=== PATIENT | female | born 1945 | race Asian ===

== ENCOUNTER → 2017-03-04 | Day surgery (SDC) | payer MEDICARE, BC ==
[~2017-03-04] VITALS: Ht 152.4 cm; Wt 67.6 kg
[2017-03-04] VITALS (9 sets, daily range): BP systolic 157–176; BP diastolic 60–90
[~2017-03-04] MED LIST: ATORVASTATIN CA20 MG ORAL; Akten 3.5% 1ml Btl ONE; BSS 15ml BTL ONE; BSS 500ml btl ONE; Dexamethasone 4mg/ml vial ONE; EPINEPHrine 1mg/1ml Amp ONE; FOSAMAX70 MG ORAL; Gatifloxacin Opth Solution 0.5% ONE; HUMALOG 75/255 UNIT1 SUBQ; HUMALOG100 UNIT/1 SUBQ; HUMULIN N100 UNIT/1 SUBQ; LOSARTAN POTASS50 MG ORAL; LR 1000ml ONE; Lidocaine 1% MPF 10mg/ml 5ml ONE; Midazolam 2mg/2ml Inj ONE; NS Irrig 1000ml ONE; Phenylephrine 2.5% Op Soln ONE; Povidone-Iodine 5% opth solution ONE; SANDIMMUNE25 MG PO; Sodium Hyaluronate 14 mg/ml 0.85ml ONE; Sterile Water Irrig 1000ml IRRIG ONE; Tobradex Opth Susp 2.5ml ONE; Tropicamide 1% Opth Soln ONE; VITAMIN D3 COM1 EACH PO; fentaNYL 100 mcg/2 mL IV ONE
[2017-03-04] MEDS: Tobradex Opth Susp 2.5ml LEFT EYE SCH ×3 (07:22→07:51)
[2017-03-04] MEDS: Tropicamide 1% Opth Soln LEFT EYE SCH ×3 (07:22→07:50)
[2017-03-04] MEDS: Phenylephrine 2.5% Op Soln LEFT EYE SCH ×3 (07:23→07:50)
[2017-03-04] MEDS: Akten 3.5% 1ml Btl LEFT EYE SCH ×3 (07:23→07:50)
[2017-03-04] MEDS: Gatifloxacin Opth Solution 0.5% LEFT EYE SCH ×3 (07:23→07:50)
--- NOTE | 2017-03-04 07:36 | Pre-Procedure Note/Attestation ---
Pre-Procedure Note/Attestation Complete Prior to Procedure Planned Procedure: left Procedure Narrative: cataract extraction with implant left eye Indications for Procedure Pre-Operative Diagnosis: cataract left eye Attestation I attest that I discussed the nature of the procedure; its benefits; risks and complications; and alternatives (and the risks and benefits of such alternatives ), prior to the procedure, with the patient (or the patient's legal sales representative raw fibers). I attest that, if there was a reasonable possibility of needing a blood transfusion, the patient (or the patient's legal sales representative raw fibers) was given the [facility] standardized written summary, pursuant to the Richi Karli Blood Safety Act ([place] Health and Safety Code # 1645, as amended). I attest that I re-evaluated the patient just prior to the surgery and that there has been no change in the patient's H&P, except as documented below: ADEN FERMIN Mar 04, 2017 07:36
--- NOTE | 2017-03-04 09:22 | Anethesia Preoperative Eval ---
Anesthesia Pre-op PMH/ROS General Date of Evaluation: Mar 04, 2017 Time of Evaluation: 09:20 Anesthesiologist: shivam ASA Score: ASA 3 Mallampati Score Class I : Soft palate, uvula, fauces, pillars visible Class II: Soft palate, uvula, fauces visible Class III: Soft palate, base of uvula visible Class IV: Only hard plate visible Mallampati Classification: Class III Surgeon: lore Diagnosis: cataract Surgical Procedure: cataract extraction left eye Anesthesia History: none Family History: no anesthesia problems Allergies: Coded Allergies: Scallop (Verified Allergy, Severe, 03/03/17) SEVERE ITCHING Tuna (Verified Allergy, Severe, 03/03/17) ITCHING ASPIRIN (Verified Allergy, Unknown, 03/03/17) PT CANNOT REMEMBER REACTION CODEINE (Verified Adverse Reaction, Intermediate, GI upset, 03/04/17) Medications: see eMAR Past Medical History Cardiovascular: Reports: CAD, HTN Endocrine: Reports: DM HEENT: Reports: cataract (L) Hematology/Immune: Reports: other - hx liver failure/s/p transplant PSxH Narrative: c/section/liver transplant Anesthesia Pre-op Phys. Exam Physician Exam Last Vital Signs Date Time Temp Pulse Resp B/P Pulse Ox O2 Delivery O2 Flow Rate FiO2 03/04/17 07:47 97.5 59 18 176/78 100 Room Air Anesthesia Pre-op A/P Studies Pre-op Studies: EKG - sr Risk Assessment & Plan Plan: mac Status Change Before Surgery: No Pre-Antibiotics Drug: none ANDREIA YEPEZ CRNA Mar 04, 2017 09:22
--- NOTE | 2017-03-04 09:37 | Immediate Post-Op Evaluation ---
Immediate Post-Op Evalulation Immediate Post-Op Evalulation Procedure: cataract extraction with IOL Date of Evaluation: Mar 04, 2017 Time of Evaluation: 09:36 IV Fluids: 300 Blood Pressure Systolic: 170 Blood Pressure Diastolic: 60 Pulse Rate: 58 Respiratory Rate: 14 O2 Sat by Pulse Oximetry: 97 Temperature (Fahrenheit): 97.6 Nausea: No Vomiting: No Complications none Patient Status: awake, reacts, patent Hydration Status: adequate Drug: none TARRILLIONANDREIA CRNA Mar 04, 2017 09:37
--- NOTE | 2017-03-04 09:44 | Brief Operative Note ---
Immediate Post Operative Note Operative Note Pre-op Diagnosis: cataract left eye Procedure: phacoemulsification of cataract with implant left eye Post-op Diagnosis: same as pre-op Surgeon: aden torrez Paper Machine Operator: none Anesthesiologist: ambreen boss crna Anesthesia: MAC Specimen: none Complications: none Condition: stable Estimated Blood Loss: none Drains: none Implant(s) used?: Yes ADEN TORREZ Mar 04, 2017 09:44
--- NOTE | 2017-03-04 10:11 | 48 Hour Post Anesthesia Eval ---
Post Anesthesia Evaluation Procedure: cataract extraction with IOL Date of Evaluation: Mar 04, 2017 Time of Evaluation: 10:11 Blood Pressure Systolic: 165 0: 70 Pulse Rate: 70 Respiratory Rate: 14 O2 Sat by Pulse Oximetry: 98 Airway: patent Nausea: No Vomiting: No Hydration Status: adequate Mental Status/LOC: patient returned to baseline Post-Anesthesia Complications: none Follow-up care needed: N/A ANDREIA YEPEZ CRNA Mar 04, 2017 10:11
--- NOTE | 2017-03-04 12:48 | Operative Note - Dictated ---
DATE OF OPERATION: 03/04/2017 PREOPERATIVE DIAGNOSIS: Cataract, left eye. POSTOPERATIVE DIAGNOSIS: Cataract, left eye. PROCEDURE: Phacoemulsification of cataract, left eye, with placement of posterior intraocular lens. SURGEON: David Bethea M.D. ([facility] [place]) FREELANCE GRAPHIC DESIGNER: None. ANESTHESIA: MAC/topical. ANESTHESIOLOGIST: Aziza Thomas C.R.N.A. INDICATION FOR PROCEDURE: Poor vision, left eye. DESCRIPTION OF FINDINGS: Dense nuclear sclerotic cataract, left eye. DESCRIPTION OF PROCEDURE: The patient received a topical anesthetic block consisting of 3.5% Akten eye drops. The eye was then prepped and draped in the usual manner. A lid speculum was placed and an operating Zeiss microscope was positioned. The temporal corneal groove was made with the lyle blade. A SuperSharp blade made a stab incision at the 6 o'clock position. A 0.1 mL of 1% nonpreserved intracameral lidocaine was injected. Healon was instilled into the anterior chamber and a 2.5/2.8 mm trapezoidal lyle blade was used to complete the temporal corneal wound. A cystotome was used to create an anterior capsular flap. Utrata forceps were used to complete the capsulorrhexis. BSS on a cannula was used to hydrodissect the nucleus. The lens nucleus phacoemulsified in a phaco-fracture technique. Remaining cortical material was removed with the I/A and the posterior capsule was polished with the I/A on Cap vac. Healon was reinstilled into the capsular bag and anterior chamber, and an Lucas foldable one-piece posterior intraocular lens, model SA608, power 14.0 diopter, serial #[id number] was placed in the injector. The lens was put in the capsular bag. The I/A tip was used to remove the Healon and position the lens. The wound edge was hydrated with BSS and a blunt-tipped cannula. The wound was checked and found to be watertight. The lid speculum was removed, and a drop of TobraDex and Zymaxid was placed. A clear plastic shield was taped over the eye. The patient tolerated the procedure well and left the operating room in good position. David Bethea M.D. ([facility]) DR: Vilma JOB#: [id number] CC: Dr. Cartagena
== END | disposition home or self-care (01) ==
LOC: SUR 06:44
DX: H25.12 Age-related nuclear cataract, left eye (principal); E11.29 Type 2 diabetes mellitus with other diabetic kidney complication; N28.9 Disorder of kidney and ureter, unspecified; Z79.4 Long term (current) use of insulin; I10 Essential (primary) hypertension; E78.00 Pure hypercholesterolemia, unspecified; M81.8 Other osteoporosis without current pathological fracture; L40.9 Psoriasis, unspecified; M17.0 Bilateral primary osteoarthritis of knee; M19.041 Primary osteoarthritis, right hand; L30.9 Dermatitis, unspecified; K72.00 Acute and subacute hepatic failure without coma; I25.10 Atherosclerotic heart disease of native coronary artery without angina pectoris; Z88.8 Allergy status to other drugs, medicaments and biological substances; Z88.6 Allergy status to analgesic agent; Z88.5 Allergy status to narcotic agent; Z91.013 Allergy to seafood
CPT/HCPCS: 66984; 82962; J0171; J1100; J2250; J3010; J7120; V2632; 94003; 94150